=== PATIENT | female | born 2000 | race Two or more races ===

== ENCOUNTER 2022-06-05 17:23 | Emergency (ER) | payer MEDICAID ==
[~2022-06-05] VITALS: Ht 160 cm; Wt 73.0 kg
[2022-06-05] MEDS ORDERED: TETANUS-DIPTH-ACEL PERTUSSIS 0.5ML SYR Tdap IM ONE (17:45)
[2022-06-05] MEDS ORDERED: HYDROcodone-ACET 5/325MG TAB PO ONE (17:45)
[2022-06-05] MEDS ORDERED: HYDR-4902 PO (19:40)
[2022-06-05] MEDS ORDERED: IBUP800T26 PO (19:40)
[2022-06-05] MEDS ORDERED: AMOX-277 PO (19:40)
[2022-06-05 20:09] VITALS: BP 114/75
== END 2022-06-05 20:11 | disposition home or self-care (01) ==
LOC: ER 17:23
DX: S01.511A Laceration without foreign body of lip, initial encounter (principal); W54.0XXA Bitten by dog, initial encounter; Y93.89 Activity, other specified; Y92.89 Other specified places as the place of occurrence of the external cause; Y99.8 Other external cause status
CPT/HCPCS: 90471; 90715

== ENCOUNTER 2023-06-13 16:57 | Emergency (ER) | payer MEDICAID ==
[~2023-06-13] VITALS: Ht 157.5 cm; Wt 65.8 kg
[~2023-06-13 16:57] MED LIST: AMOX875T4 PO; HYDR-4902 PO; IBUP-1455 PO
[2023-06-13 18:28] VITALS: BP 121/68; PULSE 82; RESP 15; TEMP 97.4; O2SAT 100
[2023-06-13] MEDS ORDERED: ACET500T58 PO (19:42)
[2023-06-13] MEDS ORDERED: CYCL-614 PO (19:42)
== END 2023-06-13 21:10 | disposition home or self-care (01) ==
LOC: ER 16:57
DX: S16.1XXA Strain of muscle, fascia and tendon at neck level, initial encounter (principal); F15.90 Other stimulant use, unspecified, uncomplicated; Z79.899 Other long term (current) drug therapy; V89.2XXA Person injured in unspecified motor-vehicle accident, traffic, initial encounter; Y93.89 Activity, other specified; Y92.89 Other specified places as the place of occurrence of the external cause; Y99.8 Other external cause status
CPT/HCPCS: 72040